=== PATIENT | male | born 1945 | race Caucasian/White ===

== ENCOUNTER 2022-06-19 07:28 | Outpatient (CLI) | payer MEDICARE, SELFPAY ==
--- NOTE | ~2022-06-19 | NM_ITS ---
EXAMINATION: NM bone scan whole body DATE: 06/19/2022 12:26 INDICATION: Bone lesion. TECHNIQUE: 25.7 mCi Tc-99m HDP was administered intravenously. Delayed whole-body scintigrams were o btained. COMPARISON: There are no relevant imaging studies at our institution. FINDINGS: There are bilateral total knee arthroplasties. There is increased activity in proximal righ t tibia adjacent to the arthroplasty. There is increased activity in distal left femur and proximal l eft tibia adjacent to the arthroplasty. There is joint-centered increased activity at the first carpo metacarpal joints and left first metacarpophalangeal joint, likely osteoarthritis. There is increased activity at the sternoclavicular joints and acromioclavicular joints, likely osteoarthritis. There i s joint centered and disc centered increased activity in lumbar spine, likely spondylosis. IMPRESSION: 1. No specific evidence of malignancy. Correlation with the outside imaging that prompted this exam i s recommended. 2. Bilateral total knee arthroplasties with increased activity adjacent to the arthroplasties, which is very nonspecific and can be normal. Reviewed, dictated and finalized at location A. [facility] IMPRESSION: 1. No specific evidence of malignancy. Correlation with the outside imaging raquel t prompted this exam is recommended. 2. Bilateral total knee arthroplasties with increased activity adjacent to the arthroplasties, which is very nonspecific and can be normal.
== END 2022-06-19 07:29 | disposition home or self-care (01) ==
LOC: ANHIMG 07:30
PROVIDERS: Visit Provider Urology
DX: M89.9 Disorder of bone, unspecified (principal); Z96.653 Presence of artificial knee joint, bilateral
CPT/HCPCS: 78306; A9561

== ENCOUNTER 2023-07-26 09:39 | Outpatient (CLI) | payer MEDICARE, SELFPAY ==
[2023-07-26 10:25] LABS: Anion Gap 11 mmol/L (8-16); Blood Urea Nitrogen 20 mg/dL (9-20); Calcium 9.4 mg/dL (8.4-10.2); Carbon Dioxide 27 mmol/L (22-30); Chloride 103 mmol/L (98-107); Estimated Glomerular Filt Rate > 60; Glucose 96 mg/dL (65-110); Potassium 3.8 mmol/L (3.4-5.0); Sodium 141 mmol/L (137-145)
== END 2023-07-26 09:40 | disposition home or self-care (01) ==
PROVIDERS: Anesthesiology; PCP Pediatrics; Visit Provider Urology
DX: Z01.818 Encounter for other preprocedural examination (principal); R97.20 Elevated prostate specific antigen [PSA]; Z79.899 Other long term (current) drug therapy
CPT/HCPCS: 36415; 80048; 87086

== ENCOUNTER 2023-08-07 00:13 | Day surgery (SDC) | payer MEDICARE, SELFPAY ==
[2023-07-25 10:51] VITALS: BMI 33.0
--- NOTE | 2023-07-25 11:13 | PC.NURSE ---
PRE-OP INSTRUCTIONS, PLEASE READ CAREFULLY Report to the Outpatient Waiting Room, entrance under the green pavilion located off [facility], at time _1100_ on date _07/31/23_. Planned Procedure Time: _1 PM_. Time changes happen often and if your time is changed the preop area will call you the afternoon before. - You and your visitor will be asked to self-screen and do not enter if you have any COVID symptoms. - A mask is optional within the hospital at this time. Patients may have clear liquids (water, carbonated beverages, clear teas, apple juice) until 3 hours prior to surgery with a maximum of 20 ounces. - No food from midnight until time of surgery Take the following medications with a SIP of water the morning of surgery: _ISOSORBIDE_ DO NOT STOP ANY OF YOUR OTHER PRESCRIPTION MEDICATIONS PRIOR TO SURGERY ?EXCEPT THE FOLLOWING Medications to discontinue - _ASPIRIN PER DR. IBARRA'S INSTRUCTIONS, Date to take last dose CALL OFFICE FOR INSTRUCTIONS_ Please no make-up, nail [place], hairspray, perfume, deodorant, or body powder the day of surgery. No jewelry (including any body piercings) or valuables the day of surgery, leave them at home. Please take a shower or bath the night before, or the morning of, surgery with an antibacterial soap. Wear comfortable, loose fitting clothing. Children are encouraged to wear pajamas. - Jewelry must be removed prior to entering the operating room. Rings and piercings that are not removed may be cut off. - The hospital will not accept responsibility for valuables. - Please leave all valuables, including medications, at home the day of surgery. If you are going home after surgery, a licensed cdl dedicated truck driver must drive you home. - NO public transportation without another adult if you receive anesthesia. - We recommend that an adult stay with you for 24 hours following discharge. - We also recommend that you do not drive, make important decision, drink alcoholic beverages, or take any drugs that were not prescribed by your health care provider for at least 24 hours after your discharge time. Follow any additional instructions given to you from your surgeon. If you or anyone in your household have experienced Covid symptoms in the past week, please notify your surgeon or the nurse liaison at the phone number below for possible testing. Telephone instructions given to _PT'S SPOUSE SABI_and asked if any additional questions and then verbalized understanding. Patient advised to call surgeon office or pre surgery nurse liaison [phone] if any additional questions.
--- NOTE | 2023-07-30 09:29 | PC.NURSE ---
Report to the Outpatient Waiting Room, entrance under the green pavilion located off [facility], at time _8:00AM on date __08/07/23 . Planned Procedure Time: __10:00AM . RESCHEDULED DATE/TIME Time changes happen often and if your time is changed the preop area will call you the afternoon before. - You and your visitor will be asked to self-screen and do not enter if you have any COVID symptoms. - A mask is optional within the hospital at this time. Patients may have clear liquids (water, carbonated beverages, clear teas, apple juice) until 3 hours prior to surgery with a maximum of 20 ounces. - No food from midnight until time of surgery. Take the following medications with a SIP of water the morning of surgery: __ISOSORBIDE DO NOT STOP ANY OF YOUR OTHER PRESCRIPTION MEDICATIONS PRIOR TO SURGERY ?EXCEPT THE FOLLOWING Medications to discontinue per physician ___HOLD ASPIRIN PER DR IBARRA- 7 DAYS PRE-OP PER PATIENT'S WIFE Date to take last dose__07/30/23 Please no make-up, nail citizen of [place], hairspray, perfume, deodorant, or body powder the day of surgery. No jewelry (including any body piercings) or valuables the day of surgery, leave them at home. Please take a shower or bath the night before, or the morning of, surgery with an antibacterial soap. Wear comfortable, loose fitting clothing. Children are encouraged to wear pajamas. - Jewelry must be removed prior to entering the operating room. Rings and piercings that are not removed may be cut off. - The hospital will not accept responsibility for valuables. - Please leave all valuables, including medications, at home the day of surgery. If you are going home after surgery, a licensed [place] cdl a driver must drive you home. - NO public transportation without another adult if you receive anesthesia. - We recommend that an adult stay with you for 24 hours following discharge. - We also recommend that you do not drive, make important decision, drink alcoholic beverages, or take any drugs that were not prescribed by your health care provider for at least 24 hours after your discharge time. Follow any additional instructions given to you from your surgeon. If you or anyone in your household have experienced Covid symptoms in the past week, please notify your surgeon or the nurse liaison at the phone number below for possible testing. Telephone instructions given to __PATIENT'S WIFE___and asked if any additional questions and then verbalized understanding. Patient advised to call surgeon office or pre surgery nurse liaison [phone] if any additional questions.
--- NOTE | 2023-08-06 15:14 | P.PNAN_ITS ---
Anes - Initial Pre Proc Eval Procedure: Operation Date: 08/07/23 10:00 Proposed Procedures p Trans Rectal Ultrasound Fusion Guided Prostate Biopsy - Reilly Dsouza MD Date/Time: 08/06/23 15:14 Surgeon: Reilly Dsouza MD Pre Op Diagnosis: elevated PSA Patient Data Age: 78 Gender: M Height: 1.78 m Weight: 104.54 kg Allergies Allergy/AdvReac Type Severity Reaction Status Date / Time No Known Allergies Allergy Verified 08/07/23 08:18 Home Medications Medication Instructions Recorded Confirmed Type Fish Oil Concentrate 2 cap DAILY 07/25/23 07/30/23 History allopurinol 300 mg tablet 300 mg DAILY 07/25/23 07/30/23 History aspirin 81 mg tablet,delayed 81 mg PO DAILY 07/25/23 07/30/23 History release atorvastatin 40 mg tablet 40 mg HS 07/25/23 07/30/23 History hydrochlorothiazide 25 mg tablet 25 mg DAILY 07/25/23 07/30/23 History isosorbide mononitrate 30 mg 30 mg PO DAILY 07/25/23 07/30/23 History tablet,extended release 24 hr mirabegron 25 mg tablet,extended 25 mg PO DAILY 07/25/23 07/30/23 History release 24 hr (Myrbetriq) olmesartan 40 mg tablet 40 mg HS 07/25/23 07/30/23 History tamsulosin 0.4 mg capsule 0.4 mg PO HS 07/25/23 07/30/23 History Patient hx anesthesia problems: none Family hx anesthesia problems: none Results Review: All pre-operative results and documents have been reviewed as part of the pre-operative evaluation. [facility] Past Medical History Medical History Atrial fibrillation History of heart attack Hyperlipidemia Hypertension Surgical History Surgical History History of coronary artery stent placement x2 Social History Social History Smoking status: Former smoker Tobacco type: cigarettes Second hand tobacco smoke exposure: No Additional smoking assessment comments: SMOKED WHILE IN THE ARM Alcohol intake: current Drinks per week: 6 Alcohol use details: 6 PK ON THE WEEKENDS Substance use: never Substance use type: does not use Living arrangements: with family Spiritual care concerns: No Anes - Eval Final PreProcedure Day of Procedure 08/06/23 15:14 Patient weight: obese Heart: regular rate and rhythm Lungs: clear to auscultation Airway: Mallampati scale class II Neurological: alert and oriented Last oral intake: >/= 8 hours ASA classification: III Emergent: no Anesthetic plan: proceed Anesthesia type and monitoring: general LMA and standard monitoring Results Review: All pre-operative results and documents have been reviewed as part of the pre- operative evaluation. Informed Consent: The patient's anesthetic plan and its attendant risks and benefits were discussed with the patient/family/POA. Questions were solicited and answers provided to the satisfaction of the patient/family/POA.
[2023-08-07] VITALS (7 sets, daily range): BP systolic 94–115; BP diastolic 50–69; PULSE 51–63; RESP 12–18; TEMP 36.1–36.3; O2SAT 96–98
[2023-08-07] MEDS: LACTATED RINGERS 1,000 ML 30 ML IV CONT (07:30)
--- NOTE | 2023-08-07 08:16 | PM.IMHP ---
H&P: HPI History of Present Illness Date/Time: 08/07/23 08:16 Chief Complaint: Elevated PSA 14 Narrative: 78 old male with an elevated PSA who has had a prior office biopsy with atypical glands. His MRI revealed a suspicious lesion. He is now here for a [facility] prostate ultrasound and biopsy Review of Systems Review of Systems: All systems reviewed & are unremarkable except as noted in HPI and below PMFSH Past Medical History Medical History Atrial fibrillation History of heart attack Hyperlipidemia Hypertension Surgical History Surgical History History of coronary artery stent placement x2 Social History Social History Smoking status: Former smoker Tobacco type: cigarettes Second hand tobacco smoke exposure: No Additional smoking assessment comments: SMOKED WHILE IN THE ARM Alcohol intake: current Drinks per week: 6 Alcohol use details: 6 PK ON THE WEEKENDS Substance use: never Substance use type: does not use Living arrangements: with family Spiritual care concerns: No Meds Home Medications and Allergies Home Medications Medication Instructions Recorded Confirmed Type Fish Oil Concentrate 2 cap DAILY 07/25/23 07/30/23 History allopurinol 300 mg tablet 300 mg DAILY 07/25/23 07/30/23 History aspirin 81 mg tablet,delayed 81 mg PO DAILY 07/25/23 07/30/23 History release atorvastatin 40 mg tablet 40 mg HS 07/25/23 07/30/23 History hydrochlorothiazide 25 mg tablet 25 mg DAILY 07/25/23 07/30/23 History isosorbide mononitrate 30 mg 30 mg PO DAILY 07/25/23 07/30/23 History tablet,extended release 24 hr mirabegron 25 mg tablet,extended 25 mg PO DAILY 07/25/23 07/30/23 History release 24 hr (Myrbetriq) olmesartan 40 mg tablet 40 mg HS 07/25/23 07/30/23 History tamsulosin 0.4 mg capsule 0.4 mg PO HS 07/25/23 07/30/23 History Allergies Allergy/AdvReac Type Severity Reaction Status Date / Time No Known Allergies Allergy Verified 08/07/23 08:18 Exam Const: General: cooperative and comfortable HENMT: Head: normal to inspection Chest: Chest palpation & inspection: normal inspection of the chest Resp: Effort & Inspection: normal respiratory effort Cardio: Rate: regular rate Rhythm: regular rhythm Assessment and Plan Assessment and plan (1) Elevated PSA: Code(s): R97.20 - Elevated prostate specific antigen [PSA] Status: Acute Assessment and Plan: Proceed with U[facility] us and prostate biopsy
--- NOTE | 2023-08-07 08:19 | WPDHPUPDATE1 ---
History and Physical Update Update Date/Time: 08/07/23 08:19 History and Physical has been reviewed, including an updated exam of the patient. There are NO changes in the patient's condition. Risks, benefits, and alternatives have been discussed and questions answered. Patient agrees to proceed with procedure.
[2023-08-07] MEDS: ceFAZolin 2 GM/D5W 50 ML 2 GM/50 ML BAG IVPB (09:59)
--- NOTE | 2023-08-07 10:25 | W.PM.PROC2 ---
Procedure Note - Detailed Date of Procedure 08/07/23 Pre-op Diagnosis elevated PSA Post-op Diagnosis Same Procedure Performed Uron[facility] us and prostate biopsy Surgeon Reilly Dsouza MD Anesthesia General Description of Procedure Patient was taken the operative suite correctly identified. Once anesthesia was obtained he was in the lateral decubitus position. Transrectal ultrasound probe was then inserted. The MRI image was then fused to the ultrasound. Three cores were taken from each region of interest. There were 2 regions of interest. Twelve cores were then stop taken in their standard fashion. Patient tolerated procedure well without any complication is taken recovery stable condition. He is to call for path results in a week. This completes dictation please send a copy of this op note to my office Estimated Blood Loss 0 Drains No Packing No Pathology Yes Complications No immediate complications Condition Stable Disposition PACU
== END 2023-08-07 12:28 | disposition home or self-care (01) ==
PROVIDERS: PCP Pediatrics; Visit Provider Urology
PROC: (CPT 55700; principal; 2023-08-07 10:00)
DX: C61 Malignant neoplasm of prostate (principal); N41.0 Acute prostatitis; N41.1 Chronic prostatitis; I10 Essential (primary) hypertension; E78.5 Hyperlipidemia, unspecified; E66.9 Obesity, unspecified; Z68.32 Body mass index [BMI] 32.0-32.9, adult; Z86.73 Personal history of transient ischemic attack (TIA), and cerebral infarction without residual deficits; Z86.79 Personal history of other diseases of the circulatory system; Z95.5 Presence of coronary angioplasty implant and graft; Z87.891 Personal history of nicotine dependence; Z79.82 Long term (current) use of aspirin
CPT/HCPCS: 76872; 55700; 36415; 80048; 87086; 88342; G0416; J0690; J1100; J2405; J2704; J3010; J7120